=== PATIENT | female | born 1950 | race Caucasian/White ===

== ENCOUNTER 2020-12-25 08:39 | Inpatient (IN) ==
[2020-12-25] MEDS ORDERED: SODIUM CHLORIDE 0.9% 1000ML 1,000 ML IV ONE (09:13)
[2020-12-25] MEDS ORDERED: ONDANSETRON INJ 2 MG/ML 2 ML VIAL IV STA (09:13)
[2020-12-25 09:36] LABS: Eosinophils # (auto) 0.26 K/uL (0-0.5); Eosinophils % (auto) 9.5 %; Hematocrit (blood only) 32.3 % (37-47); Hemoglobin 11.3 g/dL (12.0-16.0); Lymphocytes # (auto) 0.42 K/uL (1.2-3.4); Lymphocytes % (auto) 15.3 %; Mean Corpuscular Hemoglobin 30.5 pg (25-34); Mean Corpuscular Volume 87.3 fL (80-100); Mean Platelet Volume 9.8 fL (7.4-10.4); Monocytes # (auto) 0.29 K/uL (0.11-0.59); Monocytes % (auto) 10.6 %; Neutrophils # (auto) 1.77 K/uL (1.4-6.5); Neutrophils % (auto) 64.6 %; Platelet Count 139 K/uL (130-400); RDW Coefficient of Variation 11.6 % (11.5-14.5); RDW Standard Deviation 35.5 fL (36.4-46.3); White Blood Count 2.74 K/uL (4.8-10.8)
[2020-12-25 09:53] LABS: INR 1.1 (0.9-1.1); Prothrombin Time 11.4 Seconds (9.0-12.0)
[2020-12-25 09:54] LABS: Alanine Aminotransferase 41 U/L (12-78); Albumin Level 3.9 gm/dl (3.4-5.0); Aspartate Aminotransferase 26 U/L (15-37); BUN Creatinine Ratio 19.4 (10-20); Blood Urea Nitrogen 17 mg/dl (7-18); Calcium 8.8 mg/dl (8.5-10.1); Carbon Dioxide 25 mmol/L (21-32); Chloride 102 mmol/L (98-107); Creatinine Clr Calc Pharmacy 63.3 ml/min; Est GFR (African American) 78.8 ml/min; Glucose 128 mg/dl (70-99); Magnesium 1.1 mg/dl (1.8-2.4); Potassium 3.4 mmol/L (3.5-5.1); Sodium 137 mmol/L (136-145)
[2020-12-25 10:05] LABS: Albumin Globulin Ratio 1.3 (0.9-2); Alkaline Phosphatase 110 U/L (45-117); Bilirubin,Total 0.5 mg/dl (0.2-1); Total Protein 6.9 gm/dl (6.4-8.2); Troponin I < 0.015 ng/ml (0-0.045)
[2020-12-25] MEDS ORDERED: POTASSIUM CHLORIDE CRTAB 20 MEQ TABCR PO STA (10:32)
[2020-12-25] MEDS: MAGNESIUM SULFATE / D5W 1 GM/100 ML BAG IV SCH ×2 (10:44→11:47)
--- NOTE | 2020-12-25 11:32 | XRay Report ---
XR chest 1V portable CLINICAL HISTORY: Atypical chest pain COMPARISON STUDY: 12/07/2020 FINDINGS: The heart is borderline enlarged. There is aortic tortuosity/ectasia. There is no failure. There is no focal pulmonary consolidation. There are no pleural effusions. There are a few scattered calcified granulomas. There is minimal left basilar atelectasis.[ IMPRESSION: No active disease in the chest. ACT 112: Negative or not required by law. Electronically signed by: Kamar Hernandez M.D. 12/25/2020 11:31 AM
--- NOTE | 2020-12-25 13:29 | History & Physical Report ---
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 H/o radiation induced colitis, worse since this morning despite Immodium x 3 Afebrile, VSS, no leukocytosis C diff negative, stool culture pending IV fluids, electrolyte replacement (2) Chest pain: Atypical chest pain present initially and then recurring during administration of IV magnesium before subsiding EKG with NSR @ 61bpm Chest CTA without evidence of thoracic aortic dissection or pulmonary embolism Suspect intermittent discomfort will resolve with repletion of electrolytes Troponin negative x2. Repeat once more for completeness Monitor on telemetry (3) Hypomagnesemia: Initial magnesium 1.1. Replacing with repeat magnesium check this evening (4) Hypokalemia: Initial potassium 3.4. Replaced. Repeat BMP this evening (5) Cervical cancer: Follows with Dr. Hernandez of [facility] onc Current treatment regimen with weekly cisplatin since 11/29/20 as well as ongoing external radiation to the pelvis (6) HTN (hypertension): Normotensive. Continue atenolol, spironolactone (7) GERD (gastroesophageal reflux disease): Holding PPI for now as it could be contributing to hypomagnesemia Maalox PRN for dyspepsia DVT Ppx: SQ Lovenox Code status: FULL PCP: Joseph Dispo: Admitted to PCU Patient seen in collaboration with Dr. Kirk. Please see addendum. 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 Patient follows with Dr. Hernandez of [facility] onc. Current treatment regimen with weekly cisplatin since 11/29/20 as well as ongoing external radiation to the pelvis. Has had radiation induced colitis and diarrhea is generally controlled with Imodium. Also replaces electrolytes, but recently instructed by insurance law specialist to stop taking magnesium as it could be contributing to diarrhea. This morning, patient has had profuse diarrhea since waking despite taking 3 doses of Imodium. Came to ED due to developing dizziness and generalized weakness. When she got here, describes a burning left-sided chest discomfort that resolved once settled in room. Is endorsing feeling of numbness in left hand and left foot that she is experienced in the past when electrolytes are low. Returned again when receiving second gram of IV magnesium. States this is happened in the past when she receives IV magnesium replacement but does not occur when magnesium was given in normal saline. Chest pain has completely resolved at this point. Denies any nausea, vomiting or anel abdominal pain but has ongoing gurgling and bloating. Denies any fever, chills, headache, near syncope, chest pain, palpitations, shortness of breath, dysuria or constipation. Allergies Allergy/AdvReac Type Severity Reaction Status Date / Time Penicillins Allergy Hives Unverified 12/25/20 09:50 Home Medications Medication Instructions Recorded Confirmed Type allopurinol 100 mg PO BID 08/31/19 12/25/20 History atenolol 25 mg PO BID 08/31/19 12/25/20 History calcium carbonate-vitamin D3 1 tab PO QAM 08/31/19 12/25/20 History [Calcium 500 + D] esomeprazole magnesium 40 mg PO QAM 08/31/19 12/25/20 History ginkgo biloba 40 mg PO BID 08/31/19 12/25/20 History guaifenesin 600 mg PO BID 08/31/19 12/25/20 History herbal complex no.174 [Echinacea 450 mg PO BID 08/31/19 12/25/20 History and Goldenseal] multivitamin 1 tab PO QAM 08/31/19 12/25/20 History omega-3 fatty acids [Fish Oil 1,000 mg PO QAM 08/31/19 12/25/20 History Concentrate] peg 400-propylene glycol [Systane 1 drp OPHTHALMIC (EYE) BID PRN 08/31/19 12/25/20 History (propylene glycol)] vitamin E 100 unit PO QDL 08/31/19 12/25/20 History acetaminophen [Tylenol Extra 500 mg PO Q6H PRN 12/07/20 12/25/20 History Strength] gabapentin 300 mg PO BID 12/07/20 12/25/20 History glucosamine HCl 1,500 mg PO BID 12/07/20 12/25/20 History loperamide 2 mg PO QID PRN 12/07/20 12/25/20 History olanzapine 5 mg PO . DIRECTED 12/07/20 12/25/20 History prochlorperazine maleate 10 mg PO Q6H PRN 12/07/20 12/25/20 History tamsulosin 0.4 mg PO HS 12/07/20 12/25/20 History triamcinolone acetonide [Nasacort 1 spray INTRANASAL QAM 12/07/20 12/25/20 History AQ] Magnesium Iv 0 mg IV WK 12/25/20 12/25/20 History Potassium Iv 0 mg IV WK 12/25/20 12/25/20 History cisplatin 0 mg IV WK 12/25/20 12/25/20 History potassium chloride 20 meq PO HS 12/25/20 12/25/20 History simethicone 80 mg PO Q6H PRN 12/25/20 12/25/20 History spironolactone 12.5 mg PO QAM 12/25/20 12/25/20 History Past Med/Surg History Medical History Arthritis Bursitis Cervical cancer GERD (gastroesophageal reflux disease) HTN (hypertension) Left radial head fracture Neuropathy Surgical History H/O colposcopy with cervical biopsy Family History Other Heart disease Hypertension Lung disease Social History Smoking Status: Never smoker Hx Alcohol Use: No Hx Substance Use: No Preferred Language: Belarusian Communication Ability: Effective Land Acquisition Specialist Required: No Beliefs That Will Affect Care: None Current Living Situation: Spouse Other Information That Helps Us Care for You: No Feels Safe at Home: Yes Safety Concerns: Feels Safe At This Time Assistive Devices: Glasses Review of Systems Review of Systems: At least ten systems reviewed and negative except as noted in the HPI. Physical Exam Physical Exam: General Appearance: WD/WN, vitals as above, NAD, sitting up in bed, pleasant, conversing easily Head: normocephalic, atraumatic Eyes: normal inspection, PERRL, conjunctivae normal, anicteric sclerae ENT: external ear and nose normal, oropharynx normal Neck: normal visual inspection, trachea midline, no thyromegaly Respiratory: normal respiratory effort, lungs clear to auscultation, no wheeze, rales, rhonchi. No accessory muscle use Cardiovascular: regular rate, rhythm, no murmur, normal peripheral pulses, no BLE edema. Vessels: no JVD Chest: normal inspection of chest Abdomen/GI: hyperactive bowel sounds, soft but distended, nontender, no hepatosplenomegaly Extremities/Musculoskeletal: no cyanosis or clubbing, extremities motor strength 5/5 Neurologic: PERRL, EOMI, accommodation nl, no face palsy, no dysarthria, CN's II-XI intact bilaterally and moves all extremities Psychiatric: A+Ox3, euthymic affect Skin: no rashes, normal color, warm/dry Results & Data Results & Data ([facility]) Vital Signs (Past 12 Hours) Vital Signs Temp Pulse Pulse Resp BP BP Pulse Ox 12/25/20 12:40 63 14 115/70 12/25/20 12:00 60 12 124/71 12/25/20 11:50 64 16 132/68 12/25/20 10:50 62 15 96 12/25/20 10:40 63 14 99 12/25/20 10:30 69 24 96 12/25/20 10:20 68 15 97 12/25/20 10:12 63 19 98 12/25/20 09:50 63 16 12/25/20 09:40 62 17 12/25/20 09:31 63 15 12/25/20 09:30 60 15 113/65 12/25/20 09:20 64 16 12/25/20 09:18 64 16 12/25/20 09:03 66 17 128/76 12/25/20 09:02 53 L 20 128/76 100 12/25/20 09:01 63 14 100 12/25/20 08:46 36.1 C L 65 18 120/81 99 Laboratory Results Short CBC 12/25/20 12/25/20 12/25/20 Range/Units 09:20 09:20 12:38 WBC 2.74 L (4.8-10.8) K/uL Hgb 11.3 L (12.0-16.0) g/dL Hct 32.3 L (37-47) % Plt Count 139 (130-400) K/uL Troponin I < 0.015 < 0.015 (0-0.045) ng/ml BMP 12/25/20 09:20 Sodium 137 Potassium 3.4 L Chloride 102 Carbon Dioxide 25 BUN 17 Creatinine 0.87 Glucose 128 H Calcium 8.8 Cardiac Enzymes 12/25/20 12/25/20 Range/Units 09:20 12:38 Troponin I < 0.015 < 0.015 (0-0.045) ng/ml Liver Function 12/25/20 Range/Units 09:20 Total Bilirubin 0.5 (0.2-1) mg/dl AST 26 (15-37) U/L ALT 41 (12-78) U/L Alkaline Phosphatase 110 (45-117) U/L Albumin 3.9 (3.4-5.0) gm/dl Diagnostic Findings Chest X-Ray 12/25/20 08:55 XR chest 1V portable CLINICAL HISTORY: Atypical chest pain COMPARISON STUDY: 12/07/2020 FINDINGS: The heart is borderline enlarged. There is aortic tortuosity/ectasia. There is no failure. There is no focal pulmonary consolidation. There are no pleural effusions. There are a few scattered calcified granulomas. There is minimal left basilar atelectasis.[ IMPRESSION: No active disease in the chest. ACT 112: Negative or not required by law. Electronically signed by: Kamar Hernandez M.D. 12/25/2020 11:31 AM Supervising Physician Co-Signing Physician Notes I have seen and examined the patient and have discussed the case with the provider above. I agree with the assessment and plan as stated. Initial symptoms of lightheadedness and weakness and later atypical chest discomfort have resolved with electrolyte replacement. Feel the chest pain was related to the diarrhea and aberrant electrolyte levels. She continues to have multiple BMs today, reporting 10-12. Imodium available for use. Will cont some IVF and repeat BMP and Mg in am. She is still undergoing XRT treatment and is looking forward to more coming down the line. She is wrapping up chemotherapy soon. A hysterectomy is not planned for her. She continues on Nexium for severe GERD. XRT, PPI, and chemo along wtih diarrhea itself can all contribute to lyte abnormality especially low Mg. Cont to watch this carefully, even in the outpatient setting. C-diff is negative. Cont supportive care. OF note, this patient has chemo set up for day after tomorrow and would like to get to [place] for this if possible. Reagan, DO
[2020-12-25] MEDS ORDERED: OPTIRAY 350 500ml IV ONE (14:37)
--- NOTE | 2020-12-25 14:59 | Emergency Department Note ---
Impression & Plan Chest pain, Hypomagnesemia, Hypokalemia ED Provider Note INFORMANT: Patient ED PROVIDER(S): Az Chow MD CHIEF COMPLAINT: Chest pain PLAN: Disposition: Admitted Condition: Good Outpatient prescription management: none Referral: None MEDICAL DECISION MAKING: Patient presented with chest discomfort. She also was concerned about electrolyte abnormalities. She has some complaints of some numbness and weakness. She had no focal findings to suggest a central neurologic process. She had a normal ECG x1 initially. C. difficile testing was negative. Her CBC was unremarkable. Chemistry panel did reveal mild hypokalemia. She was given oral potassium. She had significant hypomagnesemia. She was given IV magnesium. Patient did note recurrent chest pain. Repeat ECG again revealed a sinus rhythm without ischemia. The patient and I discussed further management in the hospital given these episodes of chest pain. She was in agreement. Consultation was made with the [facility] service. I discussed case with Malena Copeland PA-C. She will be seeing the patient under Dr. Kirk. The inpatient team did ask for a CT of the chest to be performed and this was done. The patient was evaluated and admitted for further management. Triage Nursing notes reviewed and agree them. Vital Signs: reviewed and remarkable for no significant abnormalities Differential diagnosis: Infection, dehydration, metabolic abnormality, hypo/hyperglycemia, electrolyte disturbance, anemia, hypoxia, cardiac sources, intracerebral event, toxicologic, neurologic, as well as other pathologies. Diagnostics interpreted by me: ECG #1: Rate: 61 Rhythm:Normal sinus [place]:Normal QRS:Normal ST segements:No elevation or depression Other:No PACs or PVCs Twelve-lead ECG #2:Rate: 57 Rhythm: Sinus bradycardia [place]:Normal QRS:Normal ST segements:No elevation or depression Other:No PACs or PVCs Cardiac Monitoring:Cardiac monitoring ordered by me: The patient was placed on continuous cardiac monitoring and observed. It revealed a normal sinus rhythm at 80 beats per minute without ectopy or evidence of dysrhythmia. Imaging studies: Chest x-ray. Findings: A chest x-ray was performed and revealed no pneumothorax, effusion, infiltrate, pulmonary edema, free air under the diaphragm, or wide mediastinum. Impression: No acute disease. CT scan of the chest pending. I refer you to the EMR for further details. HPI: The patient is a 70 year old female who presents to the Emergency Room with complaints of chest pain. This started about 30 minutes prior to arrival and is currently resolving. The patient also notes the following associated symptoms, tingling in the left side of her body and weakness. She noted mild nausea as well. Patient is concerned as she is undergoing treatment for cervical cancer. She is getting radiation and subsequently has a lot of diarrhea. She is worried about her electrolyte status. She had similar symptoms with electrolyte issues in the past, specifically potassium. The patient has taken no medication for relieving factors. Current pain is rated as 3/10. Pt denies LOC, headache, fevers, chills, diaphoresis, visual changes, neck pain, breathing difficulties, vomiting, abdominal pain, back pain, melena, hematochezia, urinary symptoms, lymphadenopathy, rash, or other complaints. ROS: See above HPI for pertinent positives & negatives. A total of 10 systems reviewed and were otherwise negative. PAST MEDICAL HISTORY:See Below , cervical cancer PAST SURGICAL HISTORY:See Below, FAMILY HISTORY:See Below SOCIAL HISTORY:See Below, HOME MEDICATIONS:See Below ALLERGIES:See Below VITALS:See Below PHYSICAL EXAMINATION: GENERAL: Awake, alert, well-appearing, in no distress HENT: Normocephalic, atraumatic. Oropharynx unremarkable. EYES: Normal conjunctiva. Sclera non-icteric. NECK: Inspection normal. Non-tender. Supple. No nuchal rigidity. FROM. No masses. RESPIRATORY: Clear to auscultation. No wheezes. No rales. Normal respiratory effort. CARDIAC: Normal rate. Normal rhythm. No murmurs. No rubs. Extremities warm and well perfused. Pulses equal. No JVD. GI: Soft, non-distended. No tenderness to palpation. No rebound or guarding. No masses. RECTAL: Deferred. MUSCULOSKELETAL: Atraumatic. Chest examination reveals no tenderness. The back is symmetrical on inspection without obvious abnormality. There is no CVA tenderness to palpation. No joint edema. LOWER EXTREMITIES: Calves are equal size bilaterally and non-tender. No edema. No discoloration. NEURO: Normal sensorium. No sensory or motor deficits noted. SKIN: No rash or jaundice noted. Az Chow MD Past Med/Surg History Medical History Arthritis Bursitis Cervical cancer GERD (gastroesophageal reflux disease) HTN (hypertension) Left radial head fracture Neuropathy Family History Other Heart disease Hypertension Lung disease Social History Smoking Status: Never smoker Preferred Language: Cypriot Feels Safe at Home: Yes Allergies Allergies Allergy/AdvReac Type Severity Reaction Status Date / Time Penicillins Allergy Hives Unverified 12/25/20 09:50 Home Meds Home Medications Medication Instructions Recorded Confirmed allopurinol 100 mg PO BID 08/31/19 12/25/20 atenolol 25 mg PO BID 08/31/19 12/25/20 calcium carbonate-vitamin D3 1 tab PO QAM 08/31/19 12/25/20 [Calcium 500 + D] esomeprazole magnesium 40 mg PO QAM 08/31/19 12/25/20 ginkgo biloba 40 mg PO BID 08/31/19 12/25/20 guaifenesin 600 mg PO BID 08/31/19 12/25/20 herbal complex no.[id number] [Echinacea 450 mg PO BID 08/31/19 12/25/20 and Goldenseal] multivitamin 1 tab PO QAM 08/31/19 12/25/20 omega-3 fatty acids [Fish Oil 1,000 mg PO QAM 08/31/19 12/25/20 Concentrate] peg 400-propylene glycol [Systane 1 drp OPHTHALMIC (EYE) BID PRN 08/31/19 12/25/20 (propylene glycol)] vitamin E 100 unit PO QDL 08/31/19 12/25/20 acetaminophen [Tylenol Extra 500 mg PO Q6H PRN 12/07/20 12/25/20 Strength] gabapentin 300 mg PO BID 12/07/20 12/25/20 glucosamine HCl 1,500 mg PO BID 12/07/20 12/25/20 loperamide 2 mg PO QID PRN 12/07/20 12/25/20 olanzapine 5 mg PO . DIRECTED 12/07/20 12/25/20 prochlorperazine maleate 10 mg PO Q6H PRN 12/07/20 12/25/20 tamsulosin 0.4 mg PO HS 12/07/20 12/25/20 triamcinolone acetonide [Nasacort 1 spray INTRANASAL QAM 12/07/20 12/25/20 AQ] Magnesium Iv 0 mg IV WK 12/25/20 12/25/20 Potassium Iv 0 mg IV WK 12/25/20 12/25/20 cisplatin 0 mg IV WK 12/25/20 12/25/20 potassium chloride 20 meq PO HS 12/25/20 12/25/20 simethicone 80 mg PO Q6H PRN 12/25/20 12/25/20 spironolactone 12.5 mg PO QAM 12/25/20 12/25/20 Results & Data (ED) Vital Signs Vital Signs - 24 hr 12/25/20 08:46 12/25/20 09:01 12/25/20 09:02 Temperature 36.1 C L Temperature Source Temporal Artery Scan Pulse Rate 65 63 Pulse Rate [Right Finger] 53 L Pulse Rate from SpO2 Sensor Pulse Rhythm Regular Pulse Rhythm [Right Finger] Regular Pulse Strength [Right Finger] Normal Respiratory Rate 18 14 20 Respiratory Effort / Characteristics Non-Labored Spontaneous Respiratory Depth Normal Respiratory Pattern Regular Blood Pressure 120/81 Blood Pressure [Left Arm] 128/76 Blood Pressure Mean 94 Blood Pressure Mean [Left Arm] 93 Blood Pressure Position [Left Arm] Lying Pulse Oximetry 99 100 100 Oxygen Delivery Method Room Air Room Air Room Air Sepsis Recent Fever Within 48 Hours No Sepsis New/Unexplained Change in Mental Status N/A Sepsis Action Taken by Nursing No Action Required 12/25/20 09:03 12/25/20 09:18 12/25/20 09:20 Temperature Temperature Source Pulse Rate 66 64 64 Pulse Rate [Right Finger] Pulse Rate from SpO2 Sensor Pulse Rhythm Pulse Rhythm [Right Finger] Pulse Strength [Right Finger] Respiratory Rate 17 16 16 Respiratory Effort / Characteristics Respiratory Depth Respiratory Pattern Blood Pressure 128/76 Blood Pressure [Left Arm] Blood Pressure Mean 93 Blood Pressure Mean [Left Arm] Blood Pressure Position [Left Arm] Pulse Oximetry Oxygen Delivery Method Sepsis Recent Fever Within 48 Hours Sepsis New/Unexplained Change in Mental Status Sepsis Action Taken by Nursing 12/25/20 09:30 12/25/20 09:31 12/25/20 09:40 Temperature Temperature Source Pulse Rate 60 63 62 Pulse Rate [Right Finger] Pulse Rate from SpO2 Sensor Pulse Rhythm Pulse Rhythm [Right Finger] Pulse Strength [Right Finger] Respiratory Rate 15 15 17 Respiratory Effort / Characteristics Respiratory Depth Respiratory Pattern Blood Pressure 113/65 Blood Pressure [Left Arm] Blood Pressure Mean 81 Blood Pressure Mean [Left Arm] Blood Pressure Position [Left Arm] Pulse Oximetry Oxygen Delivery Method Sepsis Recent Fever Within 48 Hours Sepsis New/Unexplained Change in Mental Status Sepsis Action Taken by Nursing 12/25/20 09:50 12/25/20 10:12 12/25/20 10:20 Temperature Temperature Source Pulse Rate 63 63 68 Pulse Rate [Right Finger] Pulse Rate from SpO2 Sensor 64 69 Pulse Rhythm Pulse Rhythm [Right Finger] Pulse Strength [Right Finger] Respiratory Rate 16 19 15 Respiratory Effort / Characteristics Respiratory Depth Respiratory Pattern Blood Pressure Blood Pressure [Left Arm] Blood Pressure Mean Blood Pressure Mean [Left Arm] Blood Pressure Position [Left Arm] Pulse Oximetry 98 97 Oxygen Delivery Method Sepsis Recent Fever Within 48 Hours Sepsis New/Unexplained Change in Mental Status Sepsis Action Taken by Nursing 12/25/20 10:30 12/25/20 10:40 12/25/20 10:50 Temperature Temperature Source Pulse Rate 69 63 62 Pulse Rate [Right Finger] Pulse Rate from SpO2 Sensor 68 60 61 Pulse Rhythm Pulse Rhythm [Right Finger] Pulse Strength [Right Finger] Respiratory Rate 24 14 15 Respiratory Effort / Characteristics Respiratory Depth Respiratory Pattern Blood Pressure Blood Pressure [Left Arm] Blood Pressure Mean Blood Pressure Mean [Left Arm] Blood Pressure Position [Left Arm] Pulse Oximetry 96 99 96 Oxygen Delivery Method Sepsis Recent Fever Within 48 Hours Sepsis New/Unexplained Change in Mental Status Sepsis Action Taken by Nursing 12/25/20 11:50 12/25/20 12:00 12/25/20 12:40 Temperature Temperature Source Pulse Rate 64 60 63 Pulse Rate [Right Finger] Pulse Rate from SpO2 Sensor Pulse Rhythm Pulse Rhythm [Right Finger] Pulse Strength [Right Finger] Respiratory Rate 16 12 14 Respiratory Effort / Characteristics Respiratory Depth Respiratory Pattern Blood Pressure 132/68 124/71 115/70 Blood Pressure [Left Arm] Blood Pressure Mean 89 88 85 Blood Pressure Mean [Left Arm] Blood Pressure Position [Left Arm] Pulse Oximetry Oxygen Delivery Method Sepsis Recent Fever Within 48 Hours Sepsis New/Unexplained Change in Mental Status Sepsis Action Taken by Nursing 12/25/20 14:00 Temperature Temperature Source Pulse Rate 80 Pulse Rate [Right Finger] Pulse Rate from SpO2 Sensor Pulse Rhythm Pulse Rhythm [Right Finger] Pulse Strength [Right Finger] Respiratory Rate 20 Respiratory Effort / Characteristics Respiratory Depth Respiratory Pattern Blood Pressure 134/76 Blood Pressure [Left Arm] Blood Pressure Mean 95 Blood Pressure Mean [Left Arm] Blood Pressure Position [Left Arm] Pulse Oximetry 98 Oxygen Delivery Method Sepsis Recent Fever Within 48 Hours Sepsis New/Unexplained Change in Mental Status Sepsis Action Taken by Nursing Laboratory Data Result diagrams: 12/25/20 09:20 12/25/20 09:20 Lab Results 12/25/20 12/25/20 12/25/20 Range/Units 09:20 09:20 09:20 WBC 2.74 L (4.8-10.8) K/uL RBC 3.70 L (4.2-5.4) M/uL Hgb 11.3 L (12.0-16.0) g/dL Hct 32.3 L (37-47) % MCV 87.3 (80-100) fL MCH 30.5 (25-34) pg MCHC 35.0 (32-36) g/dL RDW Std Deviation 35.5 L (36.4-46.3) fL RDW Coeff of Clau 11.6 (11.5-14.5) % Plt Count 139 (130-400) K/uL MPV 9.8 (7.4-10.4) fL Immature Gran % (Auto) 0.0 % Neut % (Auto) 64.6 % Lymph % (Auto) 15.3 % Park % (Auto) 10.6 % Eos % (Auto) 9.5 % Baso % (Auto) 0.0 % Neut # (Auto) 1.77 (1.4-6.5) K/uL Lymph # (Auto) 0.42 L (1.2-3.4) K/uL Park # (Auto) 0.29 (0.11-0.59) K/uL Eos # (Auto) 0.26 (0-0.5) K/uL Baso # (Auto) 0.00 (0-0.2) K/uL Immature Gran # (Auto) 0.00 (0.00-0.02) K/uL PT 11.4 (9.0-12.0) Seconds INR 1.1 (0.9-1.1) Sodium 137 (136-145) mmol/L Potassium 3.4 L (3.5-5.1) mmol/L Chloride 102 (98-107) mmol/L Carbon Dioxide 25 (21-32) mmol/L Anion Gap 10.0 (3-11) BUN 17 (7-18) mg/dl Creatinine 0.87 (0.6-1.2) mg/dl Est Cr Clr Drug Dosing 63.3 ml/min Est GFR ( Amer) 78.8 ml/min Est GFR (Non-Af Amer) 68.0 ml/min BUN/Creatinine Ratio 19.4 (10-20) Glucose 128 H (70-99) mg/dl Calcium 8.8 (8.5-10.1) mg/dl Magnesium 1.1 L (1.8-2.4) mg/dl Total Bilirubin 0.5 (0.2-1) mg/dl AST 26 (15-37) U/L ALT 41 (12-78) U/L Alkaline Phosphatase 110 (45-117) U/L Troponin I < 0.015 (0-0.045) ng/ml Total Protein 6.9 (6.4-8.2) gm/dl Albumin 3.9 (3.4-5.0) gm/dl Globulin 3.0 (2.5-4.0) gm/dl Albumin/Globulin Ratio 1.3 (0.9-2) TSH 1.940 (0.300-4.500) uIu/ml Stl C. diff Tox B Gene (Neg) COVID-19 Eval Order SARS-CoV-2 (PCR) (Negative) 12/25/20 12/25/20 12/25/20 Range/Units 09:44 12:21 12:21 WBC (4.8-10.8) K/uL RBC (4.2-5.4) M/uL Hgb (12.0-16.0) g/dL Hct (37-47) % MCV (80-100) fL MCH (25-34) pg MCHC (32-36) g/dL RDW Std Deviation (36.4-46.3) fL RDW Coeff of Clau (11.5-14.5) % Plt Count (130-400) K/uL MPV (7.4-10.4) fL Immature Gran % (Auto) % Neut % (Auto) % Lymph % (Auto) % Park % (Auto) % Eos % (Auto) % Baso % (Auto) % Neut # (Auto) (1.4-6.5) K/uL Lymph # (Auto) (1.2-3.4) K/uL Park # (Auto) (0.11-0.59) K/uL Eos # (Auto) (0-0.5) K/uL Baso # (Auto) (0-0.2) K/uL Immature Gran # (Auto) (0.00-0.02) K/uL PT (9.0-12.0) Seconds INR (0.9-1.1) Sodium (136-145) mmol/L Potassium (3.5-5.1) mmol/L Chloride (98-107) mmol/L Carbon Dioxide (21-32) mmol/L Anion Gap (3-11) BUN (7-18) mg/dl Creatinine (0.6-1.2) mg/dl Est Cr Clr Drug Dosing ml/min Est GFR ( Amer) ml/min Est GFR (Non-Af Amer) ml/min BUN/Creatinine Ratio (10-20) Glucose (70-99) mg/dl Calcium (8.5-10.1) mg/dl Magnesium (1.8-2.4) mg/dl Total Bilirubin (0.2-1) mg/dl AST (15-37) U/L ALT (12-78) U/L Alkaline Phosphatase (45-117) U/L Troponin I (0-0.045) ng/ml Total Protein (6.4-8.2) gm/dl Albumin (3.4-5.0) gm/dl Globulin (2.5-4.0) gm/dl Albumin/Globulin Ratio (0.9-2) TSH (0.300-4.500) uIu/ml Stl C. diff Tox B Gene Negative Cdiff Gene (Neg) COVID-19 Eval Order Covid19 at [facility] SARS-CoV-2 (PCR) NEGATIVE (Negative) 12/25/20 Range/Units 12:38 WBC (4.8-10.8) K/uL RBC (4.2-5.4) M/uL Hgb (12.0-16.0) g/dL Hct (37-47) % MCV (80-100) fL MCH (25-34) pg MCHC (32-36) g/dL RDW Std Deviation (36.4-46.3) fL RDW Coeff of Clau (11.5-14.5) % Plt Count (130-400) K/uL MPV (7.4-10.4) fL Immature Gran % (Auto) % Neut % (Auto) % Lymph % (Auto) % Park % (Auto) % Eos % (Auto) % Baso % (Auto) % Neut # (Auto) (1.4-6.5) K/uL Lymph # (Auto) (1.2-3.4) K/uL [place] # (Auto) (0.11-0.59) K/uL Eos # (Auto) (0-0.5) K/uL Baso # (Auto) (0-0.2) K/uL Immature Gran # (Auto) (0.00-0.02) K/uL PT (9.0-12.0) Seconds INR (0.9-1.1) Sodium (136-145) mmol/L Potassium (3.5-5.1) mmol/L Chloride (98-107) mmol/L Carbon Dioxide (21-32) mmol/L Anion Gap (3-11) BUN (7-18) mg/dl Creatinine (0.6-1.2) mg/dl Est Cr Clr Drug Dosing ml/min Est GFR ( Amer) ml/min Est GFR (Non-Af Amer) ml/min BUN/Creatinine Ratio (10-20) Glucose (70-99) mg/dl Calcium (8.5-10.1) mg/dl Magnesium (1.8-2.4) mg/dl Total Bilirubin (0.2-1) mg/dl AST (15-37) U/L ALT (12-78) U/L Alkaline Phosphatase (45-117) U/L Troponin I < 0.015 (0-0.045) ng/ml Total Protein (6.4-8.2) gm/dl Albumin (3.4-5.0) gm/dl Globulin (2.5-4.0) gm/dl Albumin/Globulin Ratio (0.9-2) TSH (0.300-4.500) uIu/ml Stl C. diff Tox B Gene (Neg) COVID-19 Eval Order SARS-CoV-2 (PCR) (Negative) Administered Medications Discontinued Medications Sodium Chloride (Nss 1000ml) 1,000 mls @ 999 mls/hr IV .Q1H1M ONE Stop: 12/25/20 10:13 Last Infusion: 12/25/20 10:27 Dose: 0 mls/hr Documented by: [id number] Admin: 12/25/20 09:24 Dose: 999 mls/hr Documented by: [id number] Magnesium Sulfate/Dextrose (Magnesium Sulfate / D5w) 1 gm in 100 mls @ 100 mls/hr IV Q1H ANAMARIA Stop: 12/25/20 12:32 Last Infusion: 12/25/20 11:56 Dose: 0 mls/hr Documented by: [id number] Admin: 12/25/20 11:47 Dose: 100 mls/hr Documented by: [id number] Infusion: 12/25/20 11:44 Dose: 100 mls/hr Documented by: [id number] Admin: 12/25/20 10:44 Dose: 100 mls/hr Documented by: [id number] Ioversol (Optiray 350 500ml) 120 ml IV ONCE ONE Stop: 12/25/20 14:38 Last Admin: 12/25/20 14:38 Dose: 120 ml Documented by: [id number] Ondansetron HCl (Ondansetron Inj 2 Mg/Ml 2 Ml Vial) 4 mg IV NOW STA Stop: 12/25/20 09:14 Last Admin: 12/25/20 10:40 Dose: Not Given Documented by: [id number] Potassium Chloride (Potassium Chloride Crtab 20 Meq Tabcr) 40 meq PO NOW STA Stop: 12/25/20 10:33 Last Admin: 12/25/20 10:43 Dose: 40 meq Documented by: [id number] Imaging Data Radiologist's Impression: Chest X-Ray 12/25/20 08:55 XR chest 1V portable CLINICAL HISTORY: Atypical chest pain COMPARISON STUDY: 12/07/2020 FINDINGS: The heart is borderline enlarged. There is aortic tortuosity/ectasia. There is no failure. There is no focal pulmonary consolidation. There are no pleural effusions. There are a few scattered calcified granulomas. There is minimal left basilar atelectasis.[ IMPRESSION: No active disease in the chest. ACT 112: Negative or not required by law. Electronically signed by: Kamar Hernandez M.D. 12/25/2020 11:31 AM Discharge Plan Visit Data Chief Complaint: Chest Pain Stated Complaint: DIARRHEA,NAUSEA,DIZZY,MILD CHEST PAIN,LFT SIDE NUM ED Provider: Az Chow Discharge Problem: Chest pain, Hypomagnesemia, Hypokalemia Forms Stand Alone Forms: My [facility] Prescriptions Prescriptions: No Action multivitamin Tablet 1 tab PO QAM RF: 0 omega-3 fatty acids [Fish Oil Concentrate] 1,000 mg Capsule 1,000 mg PO QAM RF: 0 vitamin E 100 unit Capsule 100 unit PO QDL RF: 0 atenolol 25 mg tablet 25 mg PO BID RF: 0 allopurinol 100 mg tablet 100 mg PO BID RF: 0 ginkgo biloba 40 mg Capsule 40 mg PO BID RF: 0 esomeprazole magnesium 40 mg capsule,delayed release(DR/EC) 40 mg PO QAM RF: 0 Systane (propylene glycol) 0.4-0.3 % Drops 1 drp OPHTHALMIC (EYE) BID PRN (Reason: Dry Eye(S)) RF: 0 calcium carbonate-vitamin D3 [Calcium 500 + D] 500 mg(1,250mg) -200 unit Tablet 1 tab PO QAM RF: 0 Echinacea and Goldenseal 450 mg Capsule 450 mg PO BID RF: 0 guaifenesin 600 mg Tablet Extended Release 12hr 600 mg PO BID RF: 0 gabapentin 300 mg capsule 300 mg PO BID RF: 0 glucosamine HCl 1,500 mg Tablet 1,500 mg PO BID RF: 0 loperamide 2 mg Tablet 2 mg PO QID PRN (Reason: Diarrhea) RF: 0 olanzapine 5 mg tablet 5 mg PO . DIRECTED RF: 0 prochlorperazine maleate 10 mg tablet 10 mg PO Q6H PRN (Reason: Nausea) RF: 0 tamsulosin 0.4 mg capsule 0.4 mg PO HS RF: 0 acetaminophen [Tylenol Extra Strength] 500 mg Tablet 500 mg PO Q6H PRN (Reason: Pain) RF: 0 triamcinolone acetonide [Nasacort AQ] 55 mcg Aerosol,[place]ler 1 spray INTRANASAL QAM RF: 0 spironolactone 25 mg tablet 12.5 mg PO QAM RF: 0 potassium chloride 20 mEq tablet,ER particles/crystals 20 meq PO HS RF: 0 cisplatin 50 mg Recon Soln 0 mg IV WK RF: 0 Magnesium Iv 0 mg IV WK RF: 0 Potassium Iv 0 mg IV WK RF: 0 simethicone 80 mg Tablet 80 mg PO Q6H PRN (Reason: Gi Upset) RF: 0
--- NOTE | 2020-12-25 15:08 | CT Scan Report ---
CT ANGIOGRAPHY OF THE CHEST DISSECTION PROTOCOL CLINICAL HISTORY: Chest pain. Left-sided numbness. COMPARISON STUDY: Chest CT December 07, 2020. Chest radiograph performed earlier today. TECHNIQUE: Before and following the IV administration of 120 mL of Optiray, helical axial images of t he chest were obtained. Maximal intensity projections and sagittal and coronal reformats were viewed on an independent 3D workstation. IV contrast was administered without complication. Automated exp osure control was utilized for the study. A dose lowering technique was utilized adhering to the mary Iqbal. CT DOSE: 1062.17 mGy.cm FINDINGS: Left lobe thyroid nodule is noted. This was shown on chest CT of December 07, 2020. Multiple bi lateral breast nodules were also shown on examination. These are suboptimally assessed by CT. The siz e of the heart is normal. The caliber of the thoracic aorta is normal. There is no thoracic aortic di ssection or intramural hematoma. No pulmonary emboli are identified. No pneumothorax or pleural effus ion is noted. There are calcified granulomas within the lungs. There is no consolidation to suggest p neumonia. No acute rib or thoracic spine fracture is identified. Hepatic steatosis is noted. There is a medial segment hepatic cyst. Small hiatal hernia is present. IMPRESSION: 1. No thoracic aortic dissection. 2. No acute process within the chest. ACT 112: Negative or not required by law. Electronically signed by: Beck Lorenzo M.D. 12/25/2020 3:07 PM
[2020-12-25] MEDS ORDERED: ALUMINUM/MAGNESIUM SUSP 30 ML UDC PO PRN (15:35)
[2020-12-25] MEDS ORDERED: ARTIFICIAL TEARS OP PRN (16:40)
[2020-12-25] MEDS ORDERED: SIMETHICONE 80 MG CHEW PO PRN (16:41)
[2020-12-25] MEDS ORDERED: MAGNESIUM SULFATE 50% 4 GM in SODIUM CHLORIDE 0.9% 500 ML IV SCH (16:45)
[2020-12-25 17:24] LABS: Appearance Urine Clear (Clear); Bacteria Urine Automated Negative (Negative); Bilirubin Urine Negative (Negative); Blood Urine Negative (Negative); Cast Urine Automated 0 /lpf (0-5); Color Urine Yellow; Glucose Urine UA Negative (Negative); Ketones Urine Negative (Negative); Leukocyte Esterase Urine Trace (Negative); Nitrite Urine Negative (Negative); Protein Urine Negative (Negative); RBC Urine Automated 0-4 /hpf (0-4); Specific Gravity Urine 1.019 (1.000-1.030); Urobilinogen Urine Negative (Negative)
[2020-12-25] MEDS ORDERED: POLYETHYLENE (MIRALAX) 17 GM PACK PO PRN (17:25)
[2020-12-25] MEDS ORDERED: ONDANSETRON INJ 2 MG/ML 2 ML VIAL IV PRN (17:25)
[2020-12-25 18:54] LABS: BUN Creatinine Ratio 19.2 (10-20); Blood Urea Nitrogen 13 mg/dl (7-18); Calcium 8.4 mg/dl (8.5-10.1); Carbon Dioxide 25 mmol/L (21-32); Chloride 107 mmol/L (98-107); Creatinine Clr Calc Pharmacy 83.4 ml/min; Est GFR (African American) 104.5 ml/min; Est GFR (Non-African American) 90.1 ml/min; Glucose 109 mg/dl (70-99); Potassium 3.9 mmol/L (3.5-5.1); Sodium 139 mmol/L (136-145)
[2020-12-25 18:58] LABS: Troponin I < 0.015 ng/ml (0-0.045)
[2020-12-25] MEDS: allopurinoL 100 MG TAB PO SCH (20:52)
[2020-12-25] MEDS: GABAPENTIN 300 MG CAP PO SCH (20:52)
[2020-12-25] MEDS: ATENOLOL 25 MG TABLET PO SCH (20:52)
[2020-12-25] MEDS ORDERED: ENOXAPARIN INJ 40 MG/0.4 ML SYR SQ SCH (21:00)
[2020-12-25] MEDS ORDERED: TAMSULOSIN HCL 0.4 MG CAP PO SCH (21:00)
[2020-12-25] MEDS ORDERED: GLUCOSAMINE HCL 1500 MG PO SCH (21:00)
[2020-12-25] MEDS ORDERED: POTASSIUM CHLORIDE CRTAB 20 MEQ TABCR PO SCH (21:00)
[2020-12-25] MEDS: guaiFENesin 600 MG TABCR PO SCH (21:06)
[2020-12-25] MEDS: ACETAMINOPHEN 325 MG TAB PO PRN (21:07)
[2020-12-25] MEDS ORDERED: D5W AND 1/2NSS + 20MEQ KCL 20 MEQ/1,000 ML BAG IV SCH (23:30)
[2020-12-26 05:59] LABS: Hematocrit (blood only) 29.3 % (37-47); Hemoglobin 10.3 g/dL (12.0-16.0); Mean Corpuscular Hemoglobin 31.6 pg (25-34); Mean Corpuscular Hgb Conc 35.2 g/dL (32-36); Mean Corpuscular Volume 89.9 fL (80-100); RDW Coefficient of Variation 11.7 % (11.5-14.5); RDW Standard Deviation 37.3 fL (36.4-46.3); Red Blood Count 3.26 M/uL (4.2-5.4); White Blood Count 1.95 K/uL (4.8-10.8)
--- NOTE | 2020-12-26 06:03 | Electrocardiogram Report ---
Test Reason : Blood Pressure : / mmHG Vent. Rate : 061 BPM Atrial Rate : 061 BPM P-R Int : 160 ms QRS Dur : 080 ms QT Int : 438 ms P-R-T Axes : 019 -03 036 degrees QTc Int : 440 ms Normal sinus rhythm Normal ECG When compared with ECG of 07-DEC-2020 20:31, No significant change was found Confirmed by Bj Michael ([id number]) on 12/26/2020 6:02:49 AM Referred By: ED Confirmed By:Bj Michael
[2020-12-26 06:25] LABS: Mean Platelet Volume 9.5 fL (7.4-10.4); Platelet Count 97 K/uL (130-400)
[2020-12-26 06:26] LABS: Platelet Estimate Decreased (Normal)
[2020-12-26] MEDS: LOPERAMIDE HCL 2 MG CAP PO PRN ×2 (06:27→07:35)
[2020-12-26 06:44] LABS: BUN Creatinine Ratio 16.3 (10-20); Calcium 7.9 mg/dl (8.5-10.1); Creatinine Clr Calc Pharmacy 77.7 ml/min; Est GFR (African American) 100.7 ml/min; Est GFR (Non-African American) 86.9 ml/min; Magnesium 2.1 mg/dl (1.8-2.4); Potassium 4.2 mmol/L (3.5-5.1)
[2020-12-26] MEDS: ACETAMINOPHEN 325 MG TAB PO PRN (07:35)
[2020-12-26] MEDS: ATENOLOL 25 MG TABLET PO SCH (07:36)
[2020-12-26] MEDS: guaiFENesin 600 MG TABCR PO SCH (07:36)
[2020-12-26] MEDS: GABAPENTIN 300 MG CAP PO SCH (07:36)
[2020-12-26] MEDS: allopurinoL 100 MG TAB PO SCH (07:36)
[2020-12-26 07:55] LABS: Estimated Average Glucose 154 mg/dl
[2020-12-26] MEDS ORDERED: SPIRONOLACTONE 12.5 MG TAB PO SCH (09:00)
[2020-12-26] MEDS ORDERED: MULTIVITAMIN TAB PO SCH (09:00)
[2020-12-26] MEDS ORDERED: CALCIUM 600MG + VIT D 400 IU TAB PO SCH (09:00)
[2020-12-26] MEDS ORDERED: TRIAMCINOLONE ACET NASAL SPRAY 10.8ML BTL NAE SCH (09:00)
[2020-12-26] MEDS ORDERED: TOCOPHERYL, DL-ALPHA 100 UNITS CAP PO SCH (11:30)
--- NOTE | 2020-12-26 12:05 | Discharge Summary ---
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 Patient follows with Dr. Hernandez of [facility] onc. Current treatment regimen with weekly cisplatin since 11/29/20 as well as ongoing external radiation to the pelvis. Has had radiation induced colitis and diarrhea is generally controlled with Imodium. Also replaces electrolytes, but recently instructed by hemat ologist to stop taking magnesium as it could be contributing to diarrhea. This morning, patient has had profuse diarrhea since waking despite taking 3 doses of Imodium. Came to ED due to developing dizziness and generalized weakness. When she got here, describes a burning left-sided chest discomfort that resolved once settled in room. Is endorsing feeling of numbness in left hand and left foot that she is experienced in the past when electrolytes are low. Returned again when receiving second gram of IV magnesium. States this is happened in the past when she receives IV magnesium replacement but does not occur when magnesium was given in normal saline. Chest pain has completely resolved at this point. Denies any nausea, vomiting or anel abdominal pain but has ongoing gurgling and bloating. Denies any fever, chills, headache, near syncope, chest pain, palpitations, shortness of breath, dysuria or constipation. Admission Exam Per Admitting Provider General Appearance: WD/WN, vitals as above, NAD, sitting up in bed, pleasant, conversing easily Head: normocephalic, atraumatic Eyes: normal inspection, PERRL, conjunctivae normal, anicteric sclerae ENT: external ear and nose normal, oropharynx normal Neck: normal visual inspection, trachea midline, no thyromegaly Respiratory: normal respiratory effort, lungs clear to auscultation, no wheeze, rales, rhonchi. No accessory muscle use Cardiovascular: regular rate, rhythm, no murmur, normal peripheral pulses, no BLE edema. Vessels: no JVD Chest: normal inspection of chest Abdomen/GI: hyperactive bowel sounds, soft but distended, nontender, no hepatosplenomegaly Extremities/Musculoskeletal: no cyanosis or clubbing, extremities motor stren gth 5 Neurologic: PERRL, EOMI, accommodation nl, no face palsy, no dysarthria, CN's II-XI intact bilaterally and moves all extremities Psychiatric: A+Ox3, euthymic affect Skin: no rashes, normal color, warm/dry Principal Diagnosis Diarrhea Hypomagnesemia Hypokalemia Chest pain Discharge Exam Constitutional + well hydrated and + obese; no acute distress Eyes PERRL, conjunctivae normal, anicteric sclerae ENMT external ear and nose normal, oropharynx normal Respiratory normal respiratory effort, lungs clear to auscultation Cardiovascular Rate/Rhythm: regular rate and regular rhythm S1 S2 Gastrointestinal (Abdomen) normal bowel sounds, soft, nontender, no hepatosplenomegaly Musculoskeletal no cyanosis or clubbing, extremities motor strength 5/5 Neurologic PERRL, EOMI, accommodation nl, no face palsy, no dysarthria Psychiatric A+Ox3, euthymic affect Discharge Data Allergies Allergy/AdvReac Type Severity Reaction Status Date / Time Penicillins Allergy Hives Unverified 12/25/20 09:50 Consultations 12/25/20 13:50 ED Decision to Admit Stat Ordered Studies 12/25/20 13:50 CT angio chest dissec wo/w con Stat FINDINGS: Left lobe thyroid nodule is noted. This was shown on chest CT of December 07, 2020. Multiple bilateral breast nodules were also shown on examination. These are suboptimally assessed by CT. The size of the heart is normal. The caliber of the thoracic aorta is normal. There is no thoracic aortic dissection or intramural hematoma. No pulmonary emboli are identified. No pneumothorax or pleural effusion is noted. There are calcified granulomas within the lungs. There is no consolidation to suggest pneumonia. No acute rib or thoracic spine fracture is identified. Hepatic steatosis is noted. There is a medial segment hepatic cyst. Small hiatal hernia is present. IMPRESSION: 1. No thoracic aortic dissection. 2. No acute process within the chest. 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 H/o radiation induced colitis, worse since the morning of presentation despite Immodium x 3 Afebrile, VSS, no leukocytosis C diff negative, stool culture negative Was managed with IVF and immodium Diarrhea marked improved. Back to baseline per patient. (2) Chest pain: Atypical chest pain present initially and then recurring during administration of IV magnesium before subsiding EKG with NSR @ 61bpm Chest CTA without evidence of thoracic aortic dissection or pulmonary embolism Troponin trend was negative. Telemetry showed only sinus rhythm Chest pain resolved (3) Hypomagnesemia: Initial magnesium 1.1. Magnesium was repleted aggressively. Report that that high usual magnesium oxide was recently discontinued on recommendation of one of her doctors Magnesium is 2.1 this morning Patient reports that she recently had magnesium oxide 400 mg daily delivered and would not need a new prescription Patient advised to take medication. To check magnesium level next week and follow-up results with PCP (4) Hypokalemia: Initial potassium 3.4. Repleted Potassium 4.2 this morning Check BMP next week and follow-up with PCP (5) Cervical cancer: Follows with Dr. Hernandez of [facility] onc Current treatment regimen with weekly cisplatin since 11/29/20 as well as ongoing external radiation to the pelvis Patient reports that she has radiation scheduled for this afternoon at [place]. Due to resolution of symptoms, patient was discharged to follow-up with her treatments (6) HTN (hypertension): Normotensive. Continue atenolol, spironolactone (7) GERD (gastroesophageal reflux disease): Holding PPI for now as it could be contributing to hypomagnesemia Maalox PRN for dyspepsia Total Time Total Time Spent Total Time Spent (In Minutes): 35 Total Time Includes: Examination of the Patient, Discharge Planning and Medication Reconciliation Discharge Plan Discharge Items Patient Disposition: Home - Self-Care Reason For Visit: HYPOMAGNESEMIA,HYPOKALEMIA,DIARRHEA,CHEST PAIN Discharge Diagnosis: Diarrhea Hypomagnesemia Hypokalemia Activity: Resume your previous activity Non-emergency contact: Primary Care Provider Call non-emergency contact if: you have any medication questions and your symptoms worsen Follow-up/Referrals: Clemente Ruiz MD [Primary Care Provider] - (Date & Time 12/31/2020 9:00 [facility] Diet: Heart Healthy Ambulatory Orders: Basic Metabolic Panel (Routine) Timeframe: 20201231 Location: Determined by Patient Ordered By: Essence Eden Magnesium (Routine) Timeframe: 20201231 Location: Determined by Patient Ordered By: Essence Seth Attending Provider Instructions: Mrs Gil You came to the hospital complaining of increased frequency of your chronic diarrhea. You were evaluated and noted to have electrolyte abnormalities (low potassium and magnesium) You reported your magnesium had recently been stopped. These were repleted and your symptoms resolved. C. diff test was negative. Your diarrhea improved. Please continue to take the magnesium oxide 400mg daily that you have at home. Continue to take your other medications as prescribed. Please do the blood tests (Basic metabolic panel and magnesium level) next week and follow up the results with your Primary Care Doctor. It was a pleasure taking care of you. Pending Studies at Discharge: No Stand-Alone Forms: My [facility], Smoking Cessation Medications and DC Order Prescriptions: New magnesium oxide 400 mg magnesium capsule 400 mg PO DAILY Qty: 30 RF: 0 Continued multivitamin Tablet 1 tab PO QAM RF: 0 omega-3 fatty acids [Fish Oil Concentrate] 1,000 mg Capsule 1,000 mg PO QAM RF: 0 vitamin E 100 unit Capsule 100 unit PO QDL RF: 0 atenolol 25 mg tablet 25 mg PO BID RF: 0 allopurinol 100 mg tablet 100 mg PO BID RF: 0 ginkgo biloba 40 mg Capsule 40 mg PO BID RF: 0 esomeprazole magnesium 40 mg capsule,delayed release(DR/EC) 40 mg PO QAM RF: 0 Systane (propylene glycol) 0.4-0.3 % Drops 1 drp OPHTHALMIC (EYE) BID PRN (Reason: Dry Eye(S)) RF: 0 calcium carbonate-vitamin D3 [Calcium 500 + D] 500 mg(1,250mg) -200 unit Tablet 1 tab PO QAM RF: 0 Echinacea and Goldenseal 450 mg Capsule 450 mg PO BID RF: 0 guaifenesin 600 mg Tablet Extended Release 12hr 600 mg PO BID RF: 0 gabapentin 300 mg capsule 300 mg PO BID RF: 0 glucosamine HCl 1,500 mg Tablet 1,500 mg PO BID RF: 0 loperamide 2 mg Tablet 2 mg PO QID PRN (Reason: Diarrhea) RF: 0 olanzapine 5 mg tablet 5 mg PO . DIRECTED RF: 0 prochlorperazine maleate 10 mg tablet 10 mg PO Q6H PRN (Reason: Nausea) RF: 0 tamsulosin 0.4 mg capsule 0.4 mg PO HS RF: 0 acetaminophen [Tylenol Extra Strength] 500 mg Tablet 500 mg PO Q6H PRN (Reason: Pain) RF: 0 triamcinolone acetonide 55 mcg Aerosol,[place] 1 spray INTRANASAL QAM RF: 0 spironolactone 25 mg tablet 12.5 mg PO QAM RF: 0 potassium chloride 20 mEq tablet,ER particles/crystals 20 meq PO HS RF: 0 cisplatin 50 mg Recon Soln 0 mg IV WK RF: 0 Magnesium Iv 0 mg IV WK RF: 0 Potassium Iv 0 mg IV WK RF: 0 simethicone 80 mg Tablet 80 mg PO Q6H PRN (Reason: Gi Upset) RF: 0 Discharge Orders: Discharge Order (Routine); Ordered 12/26/20 Ordered By: Essence Eden Admission Data Admit Date/Time: 12/25/20 14:22 Attending Provider: Essence Eden I. Admit Provider: Ana Kirk Primary Care Provider: Clemente Ruiz Other Providers: Ana Kirk Other Interventions: Discharge Summary Assessment (RN) Last Done: 12/26/20 12:11
--- NOTE | 2020-12-28 05:22 | Electrocardiogram Report ---
Test Reason : Blood Pressure : / mmHG Vent. Rate : 057 BPM Atrial Rate : 057 BPM P-R Int : 160 ms QRS Dur : 074 ms QT Int : 464 ms P-R-T Axes : 029 026 060 degrees QTc Int : 451 ms Poor data quality, interpretation may be adversely affected Sinus bradycardia Otherwise normal ECG When compared with ECG of 25-DEC-2020 09:02, No significant change was found Confirmed by Bj Michael ([id number]) on 12/28/2020 5:22:17 AM Referred By: REFERRED SELF Confirmed By:Bj Michael
--- NOTE | 2020-12-28 05:51 | Electrocardiogram Report ---
Test Reason : Blood Pressure : / mmHG Vent. Rate : 061 BPM Atrial Rate : 061 BPM P-R Int : 160 ms QRS Dur : 080 ms QT Int : 436 ms P-R-T Axes : 028 004 035 degrees QTc Int : 438 ms Normal sinus rhythm Normal ECG When compared with ECG of 25-DEC-2020 11:54, No significant change was found Confirmed by Bj Michael ([id number]) on 12/28/2020 5:51:09 AM Referred By: REFERRED SELF Confirmed By:Bj Michael
== END 2020-12-26 12:40 | disposition home or self-care (01) | DRG 392 ==
LOC: ED 08:39 → SUATTDRO 14:22 → 2S 14:22